=== PATIENT | female | born 1935 | race Caucasian/White ===

== ENCOUNTER 2020-08-15 14:17 | Outpatient (CLI) | payer MEDICARE, BC, OTHER ==
--- NOTE | 2020-08-16 15:57 | RAD ---
EXAM: Chest PA and lateral: HISTORY: Preoperative exam COMPARISON: 12/21/2017 FINDINGS: Heart: Normal cardiac silhouette. There is a prosthetic aortic valve. There are sternotomy wires. Lef t-sided transvenous defibrillator, unchanged. Aorta: Atherosclerotic Pulmonary vessels: Normal Costophrenic angles: Costophrenic angles are clear. Lungs: No consolidation or masses. Pneumothorax: No pneumothorax Osseous structures: No osseous abnormalities IMPRESSION: No acute cardiopulmonary process. Atherosclerosis.
[2020-08-16 18:04] LABS: #Basophils 0.1 thou/uL (0.0-0.2); #Eosinphils 0.2 thou/uL (0.0-0.7); #Lymphocytes 1.3 thou/uL (1.20-3.40); #Monocytes 0.4 thou/uL (0.11-0.59); %Basophils 1.3 % (0.0-1.0); %Eosinophils 4.3 % (0.0-10.0); %Lymphocytes 26.4 % (21.0-51.0); %Monocytes 8.1 % (0.0-10.0); %Neutrophils 59.8 % (42.0-75.0); Hemoglobin 14.1 g/dL (12.0-16.0); Mean Corpuscular HGB CONC 33.2 g/dL (32.0-36.0); Mean Corpuscular Hemoglobin 33.1 pg (27.0-31.0); Mean Corpuscular Volume 99.6 fL (78.0-98.0); Mean Platelet Volume 9.1 fL (7.4-10.4); Platelet Count 205 thou/uL (130-400); Red Blood Cell (RBC) Count 4.25 mill/uL (4.20-5.40)
[2020-08-16 18:41] LABS: Anion Gap 15 mmol/L (10-20); BUN (Urea Nitrogen) 14 mg/dL (9.8-20.1); Calc. Creatinine Clearance 0 mL/min (70-130); Calcium 9.6 mg/dL (7.8-10.44); Carbon Dioxide 27 mmol/L (23-31); Chloride 104 mmol/L (98-107); Estimated GFR-MDRD 52; Glucose 96 mg/dL (83-110); Potassium 4.6 mmol/L (3.5-5.1); Sodium 141 mmol/L (136-145)
[2020-08-17 11:17] LABS: SARS-CoV-2 MS2 Positive; SARS-CoV-2 N Gene Negative; SARS-CoV-2 S Gene Negative; SARS-CoV-2 by NAA Not Detected (NotDetected); SARS-CoV-2 orf1ab Negative
--- NOTE | 2020-08-21 13:58 | EKG ---
Test Reason : PREOP Blood Pressure : / mmHG Vent. Rate : 069 BPM Atrial Rate : 069 BPM P-R Int : 156 ms QRS Dur : 112 ms QT Int : 450 ms P-R-T Axes : 057 -42 063 degrees QTc Int : 482 ms Electronic ventricular pacemaker Abnormal ECG Confirmed by CHARLI PERLA ([id number]) on 08/21/2020 1:58:07 PM Referred By: DANELLE Confirmed By:CHARLI PERLA
== END 2020-08-15 14:18 | disposition home or self-care (01) ==
LOC: LABBT 14:17
PROVIDERS: ATTEND Specialist
DX: Z01.818 Encounter for other preprocedural examination (principal); I70.0 Atherosclerosis of aorta; Z20.828 Contact with and (suspected) exposure to other viral communicable diseases
CPT/HCPCS: 71046; 80048; 85025; 93005; U0003; 87635; 93010

== ENCOUNTER 2020-08-21 08:26 | Day surgery (SDC) | payer MEDICARE, BC ==
[2020-08-20 10:37] VITALS: BMI 26.6
[2020-08-21] MEDS ORDERED: Ketorolac Tromethamine 30 MG/ML VIAL ONE (09:18)
[2020-08-21] MEDS ORDERED: Acetaminophen 500 MG TAB ONE (09:18)
[2020-08-21] MEDS ORDERED: Bupivacaine/Epinephrine 0.25% 30 ML VIAL ONE (10:25)
[2020-08-21] MEDS ORDERED: Fentanyl 100 MCG/2 ML VIAL ONE (10:48)
[2020-08-21] MEDS ORDERED: Ondansetron PF 4 MG/2 ML Vial ONE ×2 (10:49→14:08)
[2020-08-21] MEDS ORDERED: Dexamethasone 20 MG/5 ML VIAL ONE (14:08)
[2020-08-21] MEDS ORDERED: PROPOFOL 200 MG/20 ML VIAL ONE (14:08)
[2020-08-21] MEDS ORDERED: Lidocaine 1% PF 5 ML VIAL ONE (14:08)
[2020-08-21] MEDS ORDERED: EPHEDRINE 25 MG/5 ML SYRINGE ONE (14:08)
--- NOTE | 2020-08-22 14:18 | OP ---
DATE OF PROCEDURE: 08/21/2020 PREOPERATIVE DIAGNOSIS: Left breast cancer. POSTOPERATIVE DIAGNOSIS: Left breast cancer. PROCEDURE PERFORMED: Ultrasound-guided left breast needle localization, needle localized left breast lumpectomy. ANESTHESIA: General with laryngeal mask airway. INDICATIONS FOR PROCEDURE: The patient is an 85-year-old white female. She had a lesion identified at the inferior left breast. 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 After discussing options with her, she has elected to proceed with a left breast lumpectomy. She refuses sentinel lymph node biopsy. DESCRIPTION OF OPERATION: Informed consent was obtained, patient taken to the operating room, where general anesthesia obtained, patient in supine position. Left breast was prepped with ChloraPrep and draped in sterile fashion. Ultrasound was utilized to identify the malignancy at the inferior left breast. This is at approximately the 6 o'clock radian. I mapped the location of the lesion on the breast in a grid fashion. I then passed a localizing wire through the lesion in a lateral to medial fashion. A vertical incision was created 2 cm medial to the localizing wire. Dissection was carried through skin and subcutaneous tissue. Flaps were raised in each direction overlying the mass, which was again visualized with ultrasound. I dissected wire, which was then replaced to the incision. The tissue into which the wire entered was grasped with Allis clamps and a wide lump of breast tissue was dissected around the wire, maintaining orientation ultrasound during the case. The specimen was removed intact. The specimen was assessed one final time with ultrasound and margins appeared to be negative. The specimen was oriented with sutures and submitted for specimen mammography. This showed that the clip was present within the specimen, that was then submitted to pathology. Meticulous hemostasis was obtained within the wound using electrocautery. The wound was irrigated. It was then closed in layers with 3-0 and 4-0 Monocryl. Additional local anesthetic was infiltrated during closure. Dermabond was placed externally. There were no complications. Blood loss was negligible. The patient tolerated the procedure well and was taken to recovery room in stable condition. Job ID: [id number]
== END 2020-08-21 14:08 | disposition home or self-care (01) ==
LOC: SDC 08:26
PROVIDERS: ATTEND Specialist
PROC: 0HBU0ZZ Excision of Left Breast, Open Approach (ICD-10-PCS; principal; 2020-08-21)
DX: C50.812 Malignant neoplasm of overlapping sites of left female breast (principal); I25.10 Atherosclerotic heart disease of native coronary artery without angina pectoris; E78.5 Hyperlipidemia, unspecified; F41.9 Anxiety disorder, unspecified; M19.90 Unspecified osteoarthritis, unspecified site; Z17.0 Estrogen receptor positive status [ER+]; Z88.1 Allergy status to other antibiotic agents; Z79.82 Long term (current) use of aspirin; Z79.899 Other long term (current) drug therapy; Z95.0 Presence of cardiac pacemaker; Z95.2 Presence of prosthetic heart valve
CPT/HCPCS: 76098; 88307; 88341; 88342; J0690; J1100; J1885; J2405; J2704; J3010

== ENCOUNTER 2021-08-27 08:49 | Outpatient (CLI) | payer MEDICARE, BC | END 2021-08-27 08:50 | disposition home or self-care (01) | LOC: BICMAMMO 08:49 | PROVIDERS: ATTEND Specialist | DX: Z08 Encounter for follow-up examination after completed treatment for malignant neoplasm (principal); Z98.890 Other specified postprocedural states; Z85.3 Personal history of malignant neoplasm of breast | CPT/HCPCS: 77066; G0279 ==

== ENCOUNTER 2022-08-11 07:54 | Outpatient (CLI) | payer MEDICARE, BC | END 2022-08-11 07:55 | disposition home or self-care (01) | LOC: BICULT 07:54 | PROVIDERS: ATTEND Obstetrics & Gynecology | DX: N63.20 Unspecified lump in the left breast, unspecified quadrant (principal); R92.1 Mammographic calcification found on diagnostic imaging of breast; Z98.890 Other specified postprocedural states | CPT/HCPCS: 76642; 77066; G0279 ==

== ENCOUNTER 2022-09-08 10:55 | Outpatient (CLI) | payer MEDICARE, BC ==
[2022-09-08 12:07] LABS: #Eosinphils 0.1 10x3/uL (0.0-0.5); #Monocytes 0.3 10x3/uL (0.0-1.1); #Neutrophils 3.7 10x3/uL (1.5-8.4); %Basophils 0.8 % (0.0-2.0); %Eosinophils 1.5 % (0.0-6.0); %Lymphocytes 20.5 % (18.0-47.0); %Monocytes 6.5 % (0.0-10.0); %Neutrophils 70.1 % (40.0-75.0); Hemoglobin 13.7 g/dL (12.0-15.5); Mean Corpuscular HGB CONC 33.1 g/dL (32.0-36.0); Mean Corpuscular Hemoglobin 32.3 pg (27.0-33.0); Mean Corpuscular Volume 97.6 fl (81.6-98.3); Platelet Count 209 10x3/uL (150-450); RBC Distribution Width 13.5 % (11.5-14.5); Red Blood Cell (RBC) Count 4.24 10x6/uL (3.90-5.03); White Blood Cell (WBC) Count 5.3 10x3/uL (3.5-10.5)
[2022-09-08 12:21] LABS: Anion Gap 14 mmol/L (10-20); BUN (Urea Nitrogen) 15 mg/dL (9.8-20.1); Calc. Creatinine Clearance 0 mL/min (70-130); Calcium 10.1 mg/dL (7.8-10.44); Carbon Dioxide 27 mmol/L (23-31); Chloride 105 mmol/L (98-107); Estimated GFR 59; Glucose 93 mg/dL (83-110); Potassium 4.6 mmol/L (3.5-5.1); Sodium 141 mmol/L (136-145)
== END 2022-09-08 10:56 | disposition home or self-care (01) ==
LOC: LABBT 10:55
PROVIDERS: ATTEND Specialist
DX: Z01.818 Encounter for other preprocedural examination (principal); C50.912 Malignant neoplasm of unspecified site of left female breast; Z17.0 Estrogen receptor positive status [ER+]
CPT/HCPCS: 80048; 85025; 93005; 93010

== ENCOUNTER 2022-10-02 06:21 | Day surgery (SDC) | payer MEDICARE, BC ==
[2022-10-01 10:31] VITALS: BMI 23.8
[2022-10-02] MEDS ORDERED: Acetaminophen 500 MG TAB ONE (08:42)
[2022-10-02] MEDS ORDERED: Ketorolac Tromethamine 30 MG/ML VIAL ONE (08:43)
[2022-10-02] MEDS ORDERED: PROPOFOL 200 MG/20 ML VIAL ONE (10:52)
[2022-10-02] MEDS ORDERED: PHENYLEPHRINE-NS 100 MCG/ML 10 ML SYRINGE ONE (10:52)
[2022-10-02] MEDS ORDERED: Ondansetron PF 4 MG/2 ML Vial ONE (10:52)
[2022-10-02] MEDS ORDERED: Dexamethasone 20 MG/5 ML VIAL ONE (10:52)
[2022-10-02] MEDS ORDERED: fentaNYL PF 100 MCG/2 ML SYRINGE ONE (10:57)
[2022-10-02] MEDS ORDERED: Bupivacaine/Epinephrine 0.25% 30 ML VIAL ONE (10:59)
[2022-10-02] MEDS ORDERED: CEFAZOLIN 2 GM VIAL ONE (11:07)
[2022-10-02] MEDS ORDERED: Sodium Chloride 0.9% 100 ML ONE (11:07)
== END 2022-10-02 15:03 | disposition home or self-care (01) ==
LOC: SDC 06:21
PROVIDERS: ATTEND Specialist
PROC: 0HBU0ZZ Excision of Left Breast, Open Approach (ICD-10-PCS; principal; 2022-10-02)
DX: C50.912 Malignant neoplasm of unspecified site of left female breast (principal); N60.22 Fibroadenosis of left breast; N60.32 Fibrosclerosis of left breast; N60.02 Solitary cyst of left breast; I25.10 Atherosclerotic heart disease of native coronary artery without angina pectoris; E78.5 Hyperlipidemia, unspecified; M19.90 Unspecified osteoarthritis, unspecified site; I35.0 Nonrheumatic aortic (valve) stenosis; Z17.0 Estrogen receptor positive status [ER+]; Z86.73 Personal history of transient ischemic attack (TIA), and cerebral infarction without residual deficits; Z79.82 Long term (current) use of aspirin; Z79.899 Other long term (current) drug therapy; Z88.1 Allergy status to other antibiotic agents; Z95.0 Presence of cardiac pacemaker; Z95.2 Presence of prosthetic heart valve
CPT/HCPCS: 19301; 93005; C1713; C1889; 88307; 93010; J1100; J1885; J2405; J2704; J3490

== ENCOUNTER 2022-12-27 21:51 | Inpatient (IN) | payer MEDICARE, BC ==
[2022-12-27] MEDS ORDERED: niCARdipine 25 MG/10 ML VIAL ONE (22:11)
[2022-12-27] MEDS ORDERED: PROPOFOL 200 MG/20 ML VIAL ONE (22:16)
[2022-12-27] MEDS ORDERED: Rocuronium Bromide 10 MG/ML (10ML VIAL) ONE (22:16)
[2022-12-27] MEDS ORDERED: Propofol 1,000 MG/100 ML VIAL IV ONE (22:21)
[2022-12-27] MEDS ORDERED: Sodium Chloride 3% 250 ML IVPB SCH (22:30)
[2022-12-27 22:31] LABS: #Eosinphils 0.1 thou/uL (0.0-0.7); #Lymphocytes 1.1 thou/uL (1.20-3.40); #Monocytes 0.6 thou/uL (0.11-0.59); #Neutrophils 8.6 thou/uL (1.40-6.50); %Basophils 0.4 % (0.0-1.0); %Eosinophils 0.8 % (0.0-10.0); %Lymphocytes 10.1 % (21.0-51.0); %Monocytes 6.1 % (0.0-10.0); %Neutrophils 82.5 % (42.0-75.0); Hemoglobin 13.7 g/dL (12.0-16.0); Mean Corpuscular HGB CONC 33.1 g/dL (32.0-36.0); Mean Corpuscular Hemoglobin 33.1 pg (27.0-31.0); Mean Corpuscular Volume 99.9 fl (78.0-98.0); Mean Platelet Volume 8.6 fL (7.4-10.4); Platelet Count 161 10x3/uL (130-400); RBC Distribution Width 12.7 % (11.5-14.5); Red Blood Cell (RBC) Count 4.14 mill/uL (4.20-5.40); White Blood Cell (WBC) Count 10.5 10x3/uL (4.8-10.8)
[2022-12-27 22:42] LABS: INR-International Normal Ratio 0.9; Prothrombin Time 12.6 sec (12.0-14.7)
[2022-12-27 22:43] LABS: PTT 26.9 sec (22.9-36.1)
[2022-12-27 22:51] LABS: ALT (SGPT) 16 U/L (8-55); AST (SGOT) 24 U/L (5-34); Albumin 4.2 g/dL (3.4-4.8); Alkaline Phosphatase 65 U/L (40-110); Anion Gap 16 mmol/L (10-20); BUN (Urea Nitrogen) 15 mg/dL (9.8-20.1); Bilirubin, Total 0.3 mg/dL (0.2-1.2); CK (CPK) 221 U/L (29-168); Calc. Creatinine Clearance 0 mL/min (70-130); Calcium 9.9 mg/dL (7.8-10.44); Carbon Dioxide 23 mmol/L (23-31); Chloride 106 mmol/L (98-107); Estimated GFR 58; Globulin 2.7 g/dL (2.4-3.5); Glucose 124 mg/dL (83-110); Potassium 4.7 mmol/L (3.5-5.1); Protein, Total 6.9 g/dL (5.8-8.1); Sodium 140 mmol/L (136-145)
[2022-12-27 23:03] LABS: Actual Bicarbonate (HCO3a) 22.5 mEq/L (22-28); Analyzer IN Cardio ER; Base Excess (BEa) 0.1 mEq/L (-2.0 to +3.0); CO2 Tension 30.1 mmHg (35.0-45.0); Calcium, Ionized (arterial) 1.18 mmol/L (1.12-1.30); Carboxyhemoglobin (COHb) 0.3 gm% (0.0-3.0); Hemoglobin (Hb) 13.7 g/dL (12.0-16.0); pH, Arterial 7.49 (7.35-7.45)
[2022-12-27 23:04] LABS: Puncture Site RRA
[2022-12-27 23:05] LABS: ALV-art Gradient 103.575 mmHg (0-20)
[2022-12-27 23:11] LABS: CKMB 4.3 ng/mL (0-6.6)
[2022-12-28] MEDS ORDERED: niCARdipine 25 MG/10 ML VIAL ONE (00:39)
[2022-12-28] MEDS ORDERED: Ondansetron PF 4 MG/2 ML Vial IVP PRN (00:41)
[2022-12-28] MEDS ORDERED: Acetaminophen 325 MG TAB PO PRN (00:41)
[2022-12-28] MEDS ORDERED: niCARdipine 25 MG in Sodium Chloride 0.9% 250 ML 250 ML IVPB PRN (00:42)
[2022-12-28] MEDS ORDERED: Ventilator Sedation Protocol 1 EACH FS SCH (00:45)
[2022-12-28] MEDS ORDERED: Propofol 1,000 MG/100 ML VIAL IV PRN (01:00)
[2022-12-28] MEDS ORDERED: Propofol BOLUS 1,000 MG/100 ML VIAL IV PRN (01:00)
[2022-12-28] MEDS ORDERED: Fentanyl BOLUS 250 ML IVPB PRN (01:00)
[2022-12-28] MEDS ORDERED: Morphine 4 MG/ML VIAL SLOW IVP PRN (01:00)
[2022-12-28] MEDS ORDERED: Lorazepam 2 MG/ML VIAL SLOW IVP PRN ×2 (01:00→11:39)
[2022-12-28] MEDS ORDERED: DISCONTINUE PREVIOUS NARCOTIC PAIN MEDICATIONS AND BENZODIAZEPINES FS SCH (01:00)
[2022-12-28] MEDS ORDERED: Fentanyl CADD 100 ML IV SCH (01:00)
[2022-12-28] MEDS ORDERED: levETIRAcetam 500 MG/5 ML VIAL SLOW IVP SCH (01:45)
[2022-12-28 03:36] LABS: #Lymphocytes 0.4 thou/uL (1.20-3.40); #Monocytes 0.4 thou/uL (0.11-0.59); %Basophils 0.1 % (0.0-1.0); %Eosinophils 0.1 % (0.0-10.0); %Lymphocytes 6.2 % (21.0-51.0); %Neutrophils 87.7 % (42.0-75.0); Hemoglobin 8.4 g/dL (12.0-16.0); Mean Corpuscular HGB CONC 33.4 g/dL (32.0-36.0); Mean Corpuscular Hemoglobin 34.1 pg (27.0-31.0); Mean Platelet Volume 11.3 fL (7.4-10.4); Platelet Count 31 10x3/uL (130-400); RBC Distribution Width 12.6 % (11.5-14.5); Red Blood Cell (RBC) Count 2.47 mill/uL (4.20-5.40); White Blood Cell (WBC) Count 6.9 10x3/uL (4.8-10.8)
[2022-12-28 03:43] VITALS: BMI 23.9
[2022-12-28 03:51] LABS: Troponin I 0.047 ng/mL (< 0.028)
[2022-12-28 04:00] LABS: ALT (SGPT) 11 U/L (8-55); AST (SGOT) 18 U/L (5-34); Albumin 3.3 g/dL (3.4-4.8); Alkaline Phosphatase 49 U/L (40-110); Anion Gap 14 mmol/L (10-20); BUN (Urea Nitrogen) 12 mg/dL (9.8-20.1); Bilirubin, Total 0.3 mg/dL (0.2-1.2); CK (CPK) 300 U/L (29-168); Calc. Creatinine Clearance 56 mL/min (70-130); Calcium 7.8 mg/dL (7.8-10.44); Carbon Dioxide 17 mmol/L (23-31); Chloride 117 mmol/L (98-107); Estimated GFR 80; Globulin 2.1 g/dL (2.4-3.5); Glucose 149 mg/dL (83-110); Potassium 3.1 mmol/L (3.5-5.1); Protein, Total 5.4 g/dL (5.8-8.1); Sodium 145 mmol/L (136-145)
[2022-12-28 06:07] LABS: SARS-CoV-2 NAA Rapid Test Not Detected (NotDetected)
[2022-12-28 06:52] LABS: Troponin I 0.056 ng/mL (< 0.028)
[2022-12-28] MEDS ORDERED: levETIRAcetam 500 MG TAB PER TUBE SCH (09:00)
[2022-12-28] MEDS ORDERED: FLU VACC QS2022-23(65YR UP)/PF 240 MCG/0.7 ML SYRINGE IM ONE (09:00)
[2022-12-28] MEDS ORDERED: Famotidine 20 MG TAB PER TUBE SCH (09:00)
[2022-12-28] MEDS ORDERED: Scopolamine 1.5 mg/72 hour Patch TOP SCH (12:00)
[2022-12-28] MEDS: Morphine 4 MG/ML VIAL SLOW IVP PRN ×2 (13:23→16:01)
[2022-12-29] MEDS: Morphine 4 MG/ML VIAL SLOW IVP PRN (01:29)
[2022-12-29 08:37] VITALS: BP 119/65; TEMP 100
[2022-12-29] MEDS ORDERED: Scopolamine 1.5 mg/72 hour Patch TD SCH (12:00)
== END 2022-12-29 16:21 | disposition hospice, inpatient (51) | DRG 64 ==
LOC: ERS 21:51 → CCU 12-28 00:36 → T4-A 12-28 15:32
PROVIDERS: ADMIT Internal Medicine; ATTEND Internal Medicine
PROC: 0D9670Z Drainage of Stomach with Drainage Device, Via Natural or Artificial Opening (ICD-10-PCS; principal; 2022-12-28)
PROC: 0BH17EZ Insertion of Endotracheal Airway into Trachea, Via Natural or Artificial Opening (ICD-10-PCS; 2022-12-28)
PROC: 5A1935Z Respiratory Ventilation, Less than 24 Consecutive Hours (ICD-10-PCS; 2022-12-28)
DX: I61.9 Nontraumatic intracerebral hemorrhage, unspecified (principal); G93.5 Compression of brain; J96.01 Acute respiratory failure with hypoxia; I16.1 Hypertensive emergency; Z20.822 Contact with and (suspected) exposure to COVID-19; F41.9 Anxiety disorder, unspecified; I25.10 Atherosclerotic heart disease of native coronary artery without angina pectoris; E78.5 Hyperlipidemia, unspecified; I10 Essential (primary) hypertension; C50.119 Malignant neoplasm of central portion of unspecified female breast; R29.732 NIHSS score 32; Z88.1 Allergy status to other antibiotic agents; Z78.1 Physical restraint status; Z79.82 Long term (current) use of aspirin; Z95.0 Presence of cardiac pacemaker; Z95.2 Presence of prosthetic heart valve; Z98.890 Other specified postprocedural states
CPT/HCPCS: 31500; 36415; 36416; 36600; 70450; 71045; 74018; 80053; 82550; 82553; 82805; 84484; 85025; 85610; 85730; 93005; 94002; 96365; 96366; 96374; 96375; 96376; 99292; J1953; J2060; J2270; J2597; J2704; J7131; U0002

== ENCOUNTER 2022-12-29 17:51 | Inpatient (IN) | payer OTHER ==
[2022-12-29] MEDS ORDERED: Bisacodyl 10 MG SUPP PR PRN (18:04)
[2022-12-29] MEDS ORDERED: Glycopyrrolate 0.2 MG/ML 5 ML SYRINGE SLOW IVP PRN (18:07)
[2022-12-29] MEDS ORDERED: Ondansetron PF 4 MG/2 ML Vial IVP PRN (18:15)
[2022-12-29] MEDS ORDERED: Acetaminophen 650 MG Suppository PR PRN (18:15)
[2022-12-29] MEDS ORDERED: Haloperidol Lactate 5 MG/ML VIAL SLOW IVP PRN (18:15)
[2022-12-29] MEDS ORDERED: Scopolamine 1.5 mg/72 hour Patch TOP PRN (18:15)
[2022-12-29 18:28] VITALS: BMI 23.8
[2022-12-30] MEDS: Morphine 4 MG/ML VIAL SLOW IVP PRN ×4 (01:08→16:47)
[2022-12-30] MEDS: Lorazepam 2 MG/ML VIAL SLOW IVP PRN (11:06)
[2022-12-31] MEDS: Lorazepam 2 MG/ML VIAL SLOW IVP PRN (13:40)
[2022-12-31] MEDS: Morphine 4 MG/ML VIAL SLOW IVP PRN (16:27)
[2023-01-01 08:07] VITALS: BP 171/104; TEMP 99
[2023-01-01] MEDS: Morphine 4 MG/ML VIAL SLOW IVP PRN ×2 (08:59→10:04)
[2023-01-01] MEDS: Lorazepam 2 MG/ML VIAL SLOW IVP PRN (09:49)
[2023-01-01] MEDS ORDERED: Morphine 4 MG/ML VIAL SLOW IVP PRN (11:14)
[2023-01-01] MEDS ORDERED: Morphine 4 MG/ML VIAL SLOW IVP SCH (11:15)
[2023-01-01] MEDS ORDERED: Scopolamine 1.5 mg/72 hour Patch TOP PRN (13:15)
== END 2023-01-01 14:50 | disposition expired | DRG 951 ==
LOC: T4-A 17:51
PROVIDERS: ADMIT Family Medicine; ATTEND Family Medicine
DX: Z51.5 Encounter for palliative care (principal); I61.9 Nontraumatic intracerebral hemorrhage, unspecified; G93.6 Cerebral edema; J96.01 Acute respiratory failure with hypoxia; I25.10 Atherosclerotic heart disease of native coronary artery without angina pectoris; F41.9 Anxiety disorder, unspecified
CPT/HCPCS: J2060; J2270